=== PATIENT | male | born 1990 | race Caucasian/White ===

== ENCOUNTER 2017-09-18 11:35 | Emergency (ER) | payer OTHER ==
[2017-09-18] MEDS: IV RINGERS,LACTATED 1000ML 1,000 ML IV (12:43)
[2017-09-18] MEDS: KETOROLAC 30 MG/ML INJ. IV (12:43)
[2017-09-18] MEDS: MORPHINE SULFATE 4 MG/ML DISP.SYRIN. IV/SQ (12:44)
[2017-09-18] MEDS: ONDANSETRON PF 4 MG/2 ML VIAL. IV (12:44)
[2017-09-18 12:47] LABS: ADD MAN DIFF? NO
[2017-09-18 12:57] LABS: BILIRUBIN,URINE NEGATIVE (NEG); CLARITY,URINE CLOUDY; COLOR,URINE AMBER; GLUCOSE,URINE NEGATIVE (NEG); NITRITE,URINE NEGATIVE (NEG); PROTEIN,URINE 100 mg/dL (NEG-TRACE)
[2017-09-18 13:00] LABS: BASO % 0 % (0-3); EOS # 0.2 x10^3/uL (0.0-0.7); EOS % 2 % (0-3); HEMATOCRIT 42.2 % (39.0-53.0); HEMOGLOBIN 14.7 g/dL (13.0-17.5); LYMPH # 3.2 x10^3/uL (1.0-4.8); LYMPH % 24 % (24-48); MEAN CORPUSCULAR HEMOGLOBIN 30 pg (25-35); MEAN CORPUSCULAR HGB CONC 35 g/dL (31-37); MEAN CORPUSCULAR VOLUME 86 fL (79-100); MONO # 0.9 x10^3/uL (0.0-1.1); MONO % 7 % (0-9); NEUT # 8.8 x10^3uL (1.8-7.7); NEUT % 67 % (31-73); PLATELET COUNT 311 x10^3/uL (140-400); RED BLOOD COUNT 4.94 x10^6/uL (4.30-5.70); RED CELL DISTRIBUTION WIDTH 13.4 % (11.5-14.5); WHITE BLOOD COUNT 13.1 x10^3/uL (4.0-11.0)
[2017-09-18 13:01] LABS: ANION GAP 8 (6-14); BLOOD UREA NITROGEN 17 mg/dL (8-26); BUN/CREATININE RATIO 14 (6-20); CARBON DIOXIDE 29 mmol/L (21-32); CHLORIDE 105 mmol/L (98-107); CREATININE 1.2 mg/dL (0.7-1.3); GFR 71.6; GLUCOSE 140 mg/dL (70-99); POTASSIUM 3.7 mmol/L (3.5-5.1); SODIUM 142 mmol/L (136-145)
[2017-09-18 13:07] LABS: ALBUMIN 4.3 g/dL (3.4-5.0); ALBUMIN/GLOBULIN RATIO 1.1 (1.0-1.7); ALK PHOS 76 U/L (46-116); ALT (SGPT) 68 U/L (16-63); AST (SGOT) 34 U/L (15-37); LIPASE 71 U/L (73-393); TOTAL BILIRUBIN 0.4 mg/dL (0.2-1.0); TOTAL PROTEIN 8.1 g/dL (6.4-8.2)
[2017-09-18 13:20] LABS: RBC,URINE TNTC /HPF (0-2)
[2017-09-18 13:22] LABS: BACTERIA,URINE 0 /HPF (0-FEW); SQUAMOUS EPITHELIAL CELL,UR OCC /LPF; WBC,URINE 0 /HPF (0-4)
== END 2017-09-18 16:52 | disposition home or self-care (01) ==
LOC: ER 11:35
DX: R10.32 Left lower quadrant pain (principal); R11.2 Nausea with vomiting, unspecified; N50.812 Left testicular pain; M54.89 Other dorsalgia; R31.9 Hematuria, unspecified; N43.3 Hydrocele, unspecified; E78.00 Pure hypercholesterolemia, unspecified; I10 Essential (primary) hypertension
CPT/HCPCS: 36415; 74176; 76870; 80053; 81001; 83690; 85025; 96361; 96374; 96375; 99285-25; J1885; J2270; J2405; J7120